=== PATIENT | female | born 1960 | race Caucasian/White ===

== ENCOUNTER 2021-10-20 11:48 | Emergency (ER) | payer OTHER, SELFPAY ==
[2021-10-20 12:41] VITALS: BP 96/65; PULSE 110; RESP 18; TEMP 35.6; O2SAT 77; BMI 16.6
--- NOTE | 2021-10-20 13:21 | CRLHL7_ITS ---
For Patients: As a result of the Century Cures Act, medical imaging exams and procedure reports are released immediately into your electronic medical record. You may view this report before your referring provider. If you have questions, please contact your health care provider. INDICATION: Edema. TECHNIQUE: Chest 2 views. COMPARISON: October 25, 2020.. FINDINGS: Cardiovascular and mediastinum: Heart size and vasculature are normal in caliber and appearance. Redemonstrated calcifications of the aortic arch. Lungs and pleural spaces: Emphysematous changes with bilateral interstitial markings similar to prior. Right upper lobe nodular opacity is identified measuring approximately 7 millimeters, new from prior. Bones and soft tissues: The partially visualized left proximal humeral deformity.. IMPRESSION: 1. No acute cardiopulmonary process identified. 2. Redemonstrate emphysematous changes with interstitial opacities likely related to lung scarring. New nodular opacity in the right upper lobe given density likely calcified nodule however recommend further evaluation with nonemergent CT of the chest when clinically feasible. Dictated by Lena Phipps MD @ 10/20/2021 2:38:51 PM (Electronically Signed)
--- NOTE | 2021-10-20 13:24 | ED.GENADULT ---
HPI - General Adult General Time Seen by Provider: 13:24 Date Seen: 10/20/21 Chief complaint: Lower Extremity Swelling Stated complaint: Swelling in feet and stomach Time Seen by Provider: 10/20/21 12:57 Source: patient and family History of Present Illness HPI narrative: Rosalba is a 61-year-old female past medical history includes alcohol dependence, alcoholic cirrhosis, COPD on chronic home oxygen at 3 L presents emerged department with family with lower extremity edema. According to patient and patient has had increased lower extremity edema over the last week. There has also been increased lower extremity rash, no new pain, she usually ambulates without a walker. She has chronic shortness of breath, she still smokes 6-7 cigarettes a day, she stills drinks 6-7 beers a day. Last hospitalization was [facility], she was admitted due to her Ascites, patient denies any abdominal pain or increased weight gain. Patient denies any chest pain, fevers, chills myalgias arthralgias, he has a chronic smoker's cough, which is nonproductive. She denies any nausea or vomiting. She has had normal urinary bowel habits. Per she has been declining. She has not seen a provider since last July. No other concerns at this time. Related Data Home Medications Medication Instructions Recorded Confirmed folic acid 1 mg tablet 10/20/21 Allergies Allergy/AdvReac Type Severity Reaction Status Date / Time No Known Drug Allergies Allergy Verified 10/20/21 12:55 Review of Systems Status of ROS: Reports: 10 or more systems reviewed and unremarkable except as noted in History and below [facility] Medical History (Updated 10/20/21 @ 16:32 by Delta Wilson MD) Alcohol abuse Ascites CHF (congestive heart failure) COPD (chronic obstructive pulmonary disease) Hypoxia Oxygen dependent Paroxysmal atrial flutter Thrombocytopenia Surgical History (Updated 10/20/21 @ 14:44 by Rosalba Marina RN) History of surgery on upper extremity Social History Smoking Status: Current every day smoker What tobacco products do you use: cigarettes Do you use any of these nicotine containing products: None Second hand tobacco smoke exposure: Yes How often do you have a drink containing alcohol: 4 or more times a week How many standard drinks containing alcohol do you have on a typical day: 5 or 6 How often do you have six or more drinks on one occasion: Weekly AUDIT-C Alcohol total score: 9 Non-prescribed substance use: denies use Exam Narrative: Exam Narrative: General: No acute distress, nontoxic in appearance. HEENT: Pupils equal round reactive to light, extraocular muscles intact, normal sclera Oropharynx is clear moist Neck: No JVD, supple full range of motion Lungs: Diminished breath sounds throughout, mild crackles at the bases bilateral Heart: Normal sinus rhythm, S1-S2 Abdomen: Abdomen is distended but soft, fluid wave present, bowel sounds present. Muscle skeletal: She has +2 pitting edema lower feet bilaterally, she has bilateral lower petechiae. Full range of motion, CMS intact. Neuro: She is alert awake and oriented x3. Psych: Mood and affect normal Const: Vital Signs, click to edit/add: Vital Signs - 24 hr 10/20/21 12:41 10/20/21 13:57 Temperature 96.1 F L Pulse Rate [Right Radial] 110 H Respiratory Rate 18 24 Blood Pressure [Ri ght Upper Arm] 96/65 102/59 L Pulse Oximetry 77 L 92 Course Course Hospital Course: Workup will include IV peripheral, will obtain an EKG, NT proBNP, x-ray chest two view, CBC, serum ETOH, INR, magnesium, ammonia level and CMP. Suspect thrombocytopenia causing her petechia. No signs of SBP or heart failure on exam. Patient and were in agreement. Differential diagnosis include complications of DVT, other considerations are congestive heart failure, venous stasis, cellulitis, liver failure, fracture as well as other etiologies. Reevaluation(s) Reevaluation #1: Patient was updated on her imaging, EKG and lab results. Her EKG did show a sinus rhythm with premature supraventricular complexes, ppm of 86, there was a nonspecific T-wave abnormality that was seen on previous, no acute changes compared to previous. This was read by myself. XR chest PA and lateral, showed no acute cardiopulmonary process, she did have a 7 mm probable calcified granuloma right upper lobe, this needs follow-up possible CT as an outpatient basis. This was read by Radiology. CBC showed no leukocytosis, hemoglobin stable at 11.7, platelet count 102 similar to previous no worsening thrombocytopenia explaining her symptoms, INR mildly elevated 1.29 related to her liver cirrhosis, no comparisonss, metabolic panel showed a potassium 3.5, magnesium 1.4 she was given supplemental magnesium oxide 400 mg in the ED, NT proBNP elevated at 666, no comparisons, other findings similar to previous, patient had no signs of clinical heart failure, for her lower extremity edema, Reed wrap applied in figure-eight pattern, discuss obtaining TEDs, no signs of infection or cellulitis. Less likely DVT. Appointment was made for follow-up next week. Reasons to return were given. Time: 16:29 Vital Signs Vital signs: Initial Vital Signs Temperature 96.1 F L 10/20/21 12:41 Temperature Source Temporal Artery Scan 10/20/21 12:41 Pulse Rate 110 H 10/20/21 12:41 Respiratory Rate 18 10/20/21 12:41 Blood Pressure 96/65 10/20/21 12:41 Blood Pressure Mean 75 10/20/21 12:41 Blood Pressure Position Sitting 10/20/21 12:41 Pulse Oximetry 77 L 10/20/21 12:41 Oxygen Delivery Method 10/20/21 12:41 Vital Signs Temperature 96.1 F L 10/20/21 12:41 Pulse Rate 110 H 10/20/21 12:41 Respiratory Rate 18 10/20/21 12:41 Blood Pressure 96/65 10/20/21 12:41 Pulse Oximetry 77 L 10/20/21 12:41 Temperature 96.1 F L 10/20/21 12:41 Pulse Rate 110 H 10/20/21 12:41 Respiratory Rate 24 10/20/21 13:57 Blood Pressure 102/59 L 10/20/21 13:57 Pulse Oximetry 92 10/20/21 13:57 Medical Decision Making Lab Data Labs: Lab Results 10/20/21 10/20/21 10/20/21 Range/Units 14:52 14:52 14:52 WBC 9.92 (4.50-11.00) K/uL RBC 3.03 L (4.00-5.20) m/uL Hgb 11.7 L (12.0-16.0) gm/dL Hct 35.0 (33.0-51.0) % MCV 116 H (80-100) fL MCH 39 H (26-34) pg MCHC 33 (32-36) gm/dL RDW Coeff of Meg 15.1 (11.5-15.5) % Plt Count 102 L (140-440) K/uL Neut % (Auto) 66.7 (42.0-72.0) % Lymph % (Auto) 23.8 (20-44) % Haskell % (Auto) 7.5 (0.0-11.0) % Eos % (Auto) 1.0 (0.0-7.0) % Baso % (Auto) 0.5 (0.0-3.0) % Neut # (Auto) 6.62 (1.7-7.0) K/uL Lymph # (Auto) 2.36 (0.90-2.90) K/uL Haskell # (Auto) 0.70 (0.00-0.90) K/UL Eos # (Auto) 0.10 (0.00-0.50) K/uL Baso # (Auto) 0.05 (0.00-0.30) K/uL Abs Immat Gran (auto) 0.05 (0.00-0.30) K/uL INR 1.29 H (0.91-1.10) Sodium 137 (135-149) mmol/L Potassium 3.5 L (3.6-5.1) mmol/L Chloride 98 (96-114) mmol/L Carbon Dioxide 32 (20-32) mmol/L BUN 4 L (7-30) mg/dL Creatinine 0.4 L (0.5-1.5) mg/dL Estimated Creat Clear 100.46 Estimated GFR 113 ml/min Glucose 162 H (60-115) mg/dL Calcium 7.7 L (8.4-10.6) mg/dL Magnesium 1.4 L (1.5-2.6) mg/dL Total Bilirubin 1.5 (0.1-1.5) mg/dL AST 62 H (12-35) U/L ALT 26 (4-35) U/L Alkaline Phosphatase 111 (40-150) U/L Ammonia 28.0 (13.1-30.0) umol/L NT-Pro-B Natriuret Pep 666 H (0-125) PG/mL Total Protein 6.7 (6.0-8.3) g/dL Albumin 2.8 L (3.3-5.0) g/dL Ethyl Alcohol 0.06 H (0.01-0.03) % Discharge Plan Discharge Clinical Impression: Bilateral edema of lower extremity, Alcoholic cirrhosis of liver with ascites, COPD (chronic obstructive pulmonary disease), On home O2 Patient Disposition: Home, Self-Care Condition: Improved Instructions: Leg Edema (ED) Additional Instructions: Appointment made for [facility] with Dr. Hathaway for at 10:30 am. Activity Level: Activity as Tolerated Prescriptions: No Action folic acid 1 mg tablet 0RF Label Comments: TAKE 1 TABLET BY MOUTH DAILY Follow Up/Referrals: Ralf Perez MD [Primary Care Provider] - Stand Alone Forms: [employer] Info Instructions
[2021-10-20 13:57] VITALS: BP 102/59; RESP 24; O2SAT 92
[2021-10-20 15:01] LABS: Basophils Absolute Auto 0.05 K/uL (0.00-0.30); Basophils Percent Auto 0.5 % (0.0-3.0); Hemoglobin* 11.7 gm/dL (12.0-16.0); Immature Granulocytes Abs Auto 0.05 K/uL (0.00-0.30); Lymphocytes Absolute Auto 2.36 K/uL (0.90-2.90); Lymphocytes Percent Auto 23.8 % (20-44); Mean Corpuscular HGB Conc 33 gm/dL (32-36); Mean Corpuscular Hemoglobin 39 pg (26-34); Mean Corpuscular Volume 116 fL (80-100); Monocytes Percent Auto 7.5 % (0.0-11.0); Neutrophils Absolute Auto 6.62 K/uL (1.7-7.0); Neutrophils Percent Auto 66.7 % (42.0-72.0); Platelet Count* 102 K/uL (140-440); RDW Coefficient of Variation % 15.1 % (11.5-15.5); Red Blood Count 3.03 m/uL (4.00-5.20); White Blood Count* 9.92 K/uL (4.50-11.00)
[2021-10-20 15:02] LABS: Slide Review Reflex No
[2021-10-20 15:36] LABS: INR 1.29 (0.91-1.10); Prothrombin Time 16.5 Seconds
[2021-10-20 15:51] LABS: Albumin* 2.8 g/dL (3.3-5.0); Chloride* 98 mmol/L (96-114)
[2021-10-20 15:52] LABS: Potassium* 3.5 mmol/L (3.6-5.1); Sodium* 137 mmol/L (135-149)
[2021-10-20 15:54] LABS: Alanine Aminotransferase* 26 U/L (4-35); Alkaline Phosphatase* 111 U/L (40-150); Aspartate Amino Transferase* 62 U/L (12-35); Bilirubin Total* 1.5 mg/dL (0.1-1.5); Blood Urea Nitrogen* 4 mg/dL (7-30); Calcium* 7.7 mg/dL (8.4-10.6); Carbon Dioxide* 32 mmol/L (20-32); Creatinine* 0.4 mg/dL (0.5-1.5); Est. Creatinine Clearance* 100.46; Estimated Glomerular Filt Rate 113 ml/min; Glucose* 162 mg/dL (60-115); Total Protein* 6.7 g/dL (6.0-8.3)
[2021-10-20 15:55] LABS: Ethanol* 0.06 % (0.01-0.03); Magnesium* 1.4 mg/dL (1.5-2.6)
[2021-10-20 16:04] LABS: NT Pro B Type NatriureticPept* 666 PG/mL (0-125)
[2021-10-20] MEDS: MAGNESIUM OXIDE 400 MG TABLET PO (16:45)
== END 2021-10-20 16:56 | disposition home or self-care (01) ==
PROVIDERS: Emergency Provider Student in an Organized Health Care Education/Training Program; PCP Internal Medicine
DX: R60.0 Localized edema (principal); K70.31 Alcoholic cirrhosis of liver with ascites; J44.9 Chronic obstructive pulmonary disease, unspecified; Z99.81 Dependence on supplemental oxygen
CPT/HCPCS: 36415; 71046; 80053; 82077; 82140; 83735; 83880; 85025; 85610; 93005; 99283; 99285; A9270